=== PATIENT | female | born 1945 | race Caucasian/White ===

== ENCOUNTER → 2023-10-31 11:24 | Outpatient (REF) | payer OTHER, SELFPAY | LOC: RAD 11:24 | PROVIDERS: ATTENDING PHYSICIAN Family Medicine | DX: I12.9 Hypertensive chronic kidney disease with stage 1 through stage 4 chronic kidney disease, or unspecified chronic kidney disease (principal); F17.200 Nicotine dependence, unspecified, uncomplicated; R63.4 Abnormal weight loss | CPT/HCPCS: 71046 ==

== ENCOUNTER → 2024-02-11 13:38 | Outpatient (REF) | payer OTHER, SELFPAY | LOC: RCS 13:38 | PROVIDERS: ATTENDING PHYSICIAN Physician Assistant | DX: I34.0 Nonrheumatic mitral (valve) insufficiency (principal); J44.9 Chronic obstructive pulmonary disease, unspecified | CPT/HCPCS: 93306 ==

== ENCOUNTER → 2024-08-11 12:59 | Outpatient (REF) | payer OTHER, SELFPAY | LOC: RCS 12:59 | PROVIDERS: ATTENDING PHYSICIAN Internal Medicine Cardiovascular Disease; FAMILY PHYSICIAN Family Medicine | DX: I34.0 Nonrheumatic mitral (valve) insufficiency (principal); I35.0 Nonrheumatic aortic (valve) stenosis | CPT/HCPCS: 93306 ==